=== PATIENT | male | born 1975 | race Caucasian/White ===

== ENCOUNTER 2020-07-13 12:24 | Emergency (ER) | payer MEDICARE, OTHER ==
[~2020-07-13 12:24] MED LIST: ALDACTONE25 MG PO; AMOX TR-K CLV1 EAC4 PO; BENTYL10 MG PO; DEXAMETHASONE 2M2 MG PO; HEPARIN 3010 UNIT/1 IV; HUMALOG100 UNIT/1 SC; IRON325 M1 PO; JANUVIA50 MG PO; K-DUR20 MEQ PO; LASIX40 MG PO; LEVEMIR VI100 UNITS/ SC; LIPITOR 10MG TA10 MG PO; MEDROL 4MG DOSEP4 MG PO; NEURONTIN100 MG PO; NOVOLOG VI100 UNIT/1 SC; NYSTATIN SUSP1 ML/ML SSW; OXY-IR 5MG5 MG PO; PHENERGAN25 M1 PO; PREDNISONE 10MG10 MG PO; PREDNISONE 20MG20 MG PO; PREDNISONE5 MG PO; PRILOSEC20 MG PO; PROTONIX 40MG T40 MG PO; TALTZ SYRI80 MG/1 ML IJ; VENTOLIN HFA IN18 GM INH; VITAMIN D; XARELTO10 MG PO; ZANAFLEX4 M1 PO; ZESTRIL5 MG PO; ZOFRAN8 MG PO
[2020-07-13 14:01] LABS: BASOPHIL 0.4 % (0-2); EOSINOPHIL 0 % (0-5); HCT 43.9 % (42.0-52.0); HGB 13.4 g/dl (13.2-18.0); LYMPHOCYTE 3.3 % (15-48); MCH 27.9 pg (25.0-31.0); MCHC 30.5 g/dL (32.0-36.0); MCV 91.3 fL (78.0-100.0); MONOCYTE 2.9 % (0-12); MPV 9.5 fL (6.0-9.5); NRBC 0; PLT 267 K/uL (150-400); RBC 4.81 M/uL (4.70-6.00); RDW 18.9 % (11.5-14.0); WBC 11.1 K/uL (4.0-10.5)
[2020-07-13 14:05] LABS: INR 1.15 (0.9-1.2); PTT 26.4 SECONDS (22.2-34.7)
[2020-07-13 14:12] LABS: ALBUMIN 3.1 g/dL (3.4-5.0); BILIRUBIN - TOTAL 0.2 mg/dL (0.2-1.0); CREATININE 0.62 mg/dL (0.67-1.17); GLOBULIN (CALCULATION) 4.1 g/dL; MAGNESIUM 2.3 mg/dL (1.8-2.4); POTASSIUM 4.2 mmol/L (3.5-5.1); TOTAL PROTEIN 7.2 g/dL (6.4-8.2)
[2020-07-13 14:18] LABS: BILIRUBIN NEGATIVE (NEGATIVE); BLOOD NEGATIVE Ery/uL (NEGATIVE); CLARITY CLEAR (CLEAR); COLOR YELLOW (YELLOW); GLUCOSE (U) 3+ mg/dL (NORMAL); LEUKOCYTES NEGATIVE Leu/uL (NEGATIVE); NITRITE NEGATIVE (NEGATIVE); PROTEIN NEGATIVE (NEGATIVE); UROBILINOGEN 0.2 mg/dL (0.2-1.0)
[2020-07-13] MEDS ORDERED: ZOFRAN4 M1 PO (17:23)
== END 2020-07-13 17:49 | disposition home or self-care (01) ==
LOC: FER 12:24
PROVIDERS: Emergency Medicine
DX: R10.84 Generalized abdominal pain (principal); E87.2 Acidosis; R19.7 Diarrhea, unspecified; R50.9 Fever, unspecified; F17.210 Nicotine dependence, cigarettes, uncomplicated; Z88.1 Allergy status to other antibiotic agents; Z88.5 Allergy status to narcotic agent; Z86.711 Personal history of pulmonary embolism
CPT/HCPCS: 36415; 71045; 80053; 81003; 83605; 83690; 83735; 84145; 84484; 85025; 85610; 85730; J1170; J2405; J7030; Q9967

== ENCOUNTER 2020-08-04 10:57 | Emergency (ER) | payer MEDICARE, OTHER ==
[~2020-08-04 10:57] MED LIST changes: +ZOFRAN4 M1 PO
[2020-08-04 12:52] LABS: CORONAVIRUS 2019 SARS-COV-2 NEGATIVE (NEGATIVE); INFLUENZA A NAA NEGATIVE (NEGATIVE)
[2020-08-04 13:16] LABS: BASOPHIL 0.6 % (0-2); EOSINOPHIL 0.3 % (0-5); HCT 45.4 % (42.0-52.0); HGB 13.9 g/dl (13.2-18.0); MCHC 30.6 g/dL (32.0-36.0); MCV 91.5 fL (78.0-100.0); MONOCYTE 10.2 % (0-12); MPV 10.2 fL (6.0-9.5); NEUTROPHIL 62.8 % (41-80); NRBC 0; PLT 313 K/uL (150-400); RBC 4.96 M/uL (4.70-6.00); RDW 18.5 % (11.5-14.0)
[2020-08-04 13:20] LABS: INR 1.03 (0.9-1.2); PROTHROMBIN TIME 12.8 SECONDS (11.4-13.6); PTT 26.5 SECONDS (22.2-34.7)
[2020-08-04 13:33] LABS: PRO-BNP 28 pg/mL (<125)
[2020-08-04 13:47] LABS: LACTIC ACID 4.3 mmol/L (0.4-1.9)
[2020-08-04 14:12] LABS: ALBUMIN 2.8 g/dL (3.4-5.0); BILIRUBIN - TOTAL 0.4 mg/dL (0.2-1.0); BUN/CREAT RATIO (CALC) 17.7 RATIO; C-REACTIVE PROTEIN 5.2 mg/dL (<=0.90); CREATININE 0.62 mg/dL (0.67-1.17); GLOBULIN (CALCULATION) 4.2 g/dL; POTASSIUM 4.3 mmol/L (3.5-5.1)
[2020-08-04 15:16] LABS: BILIRUBIN NEGATIVE (NEGATIVE); BLOOD NEGATIVE Ery/uL (NEGATIVE); CLARITY CLEAR (CLEAR); COLOR YELLOW (YELLOW); GLUCOSE (U) NORMAL (NORMAL); LEUKOCYTES NEGATIVE Leu/uL (NEGATIVE); NITRITE NEGATIVE (NEGATIVE); PROTEIN NEGATIVE (NEGATIVE); UROBILINOGEN 0.2 mg/dL (0.2-1.0); pH 6.5 (5.0-9.0)
[2020-08-04 15:48] LABS: ECSTASY (MDMA) NEGATIVE (NEGATIVE); MARIJUANA (THC) NEGATIVE (NEGATIVE)
[2020-08-04 15:49] LABS: AMPHETAMINES NEGATIVE (NEGATIVE); BARBITURATES NEGATIVE (NEGATIVE); METHADONE NEGATIVE (NEGATIVE); OPIATES NEGATIVE (NEGATIVE); OXYCODONE POSITIVE (NEGATIVE)
[2020-08-04] MEDS ORDERED: PHENERGAN25 M1 PO ×2 (17:24→18:07)
[2020-08-04] MEDS ORDERED: PREDNISONE5 MG PO ×2 (17:24→18:07)
[2020-08-04] MEDS ORDERED: XARELTO20 MG PO ×2 (17:28→18:07)
== END 2020-08-04 18:20 | disposition home or self-care (01) ==
LOC: FER 10:57
PROVIDERS: Emergency Medicine
DX: R10.9 Unspecified abdominal pain (principal); E86.0 Dehydration; R11.2 Nausea with vomiting, unspecified; F17.210 Nicotine dependence, cigarettes, uncomplicated; Z20.822 Contact with and (suspected) exposure to COVID-19; Z88.5 Allergy status to narcotic agent; Z88.1 Allergy status to other antibiotic agents
CPT/HCPCS: 36415; 36600; 71250; 80053; 80305; 81003; 82550; 82728; 82803; 83605; 83615; 83880; 84145; 84443; 84484; 85025; 85610; 85730; 86140; 87040; 93005; J1170; J2405; J2930; J7030; U0002

== ENCOUNTER 2021-10-30 09:57 | Inpatient (IN) | payer MEDICARE, OTHER ==
[~2021-10-30] VITALS: Ht 175.3 cm; Wt 112.7 kg
[~2021-10-30 09:57] MED LIST changes: +XARELTO20 MG PO
[2021-10-30 13:37] LABS: BASOPHIL 0.7 % (0-2); EOSINOPHIL 0 % (0-5); HCT 49.7 % (42.0-52.0); HGB 15.5 g/dl (13.2-18.0); LYMPHOCYTE 7.8 % (15-48); MCH 28.8 pg (25.0-31.0); MCHC 31.2 g/dL (32.0-36.0); MCV 92.2 fL (78.0-100.0); MONOCYTE 3.8 % (0-12); MPV 10.4 fL (6.0-9.5); NEUTROPHIL 82.6 % (41-80); NRBC 0; PLT 209 K/uL (150-400); RBC 5.39 M/uL (4.70-6.00); RDW 18.2 % (11.5-14.0)
[2021-10-30 13:48] LABS: INR 1.03 (0.9-1.2); PROTHROMBIN TIME 12.9 SECONDS (11.8-13.4); PTT 25.3 SECONDS (24.4-34.7)
[2021-10-30 13:59] LABS: ALBUMIN 3.2 g/dL (3.4-5.0); BILIRUBIN - TOTAL 0.8 mg/dL (0.2-1.0); BUN/CREAT RATIO (CALC) 25.4 RATIO; C-REACTIVE PROTEIN 6.3 mg/dL (<=0.90); CREATININE 0.59 mg/dL (0.67-1.17); GLOBULIN (CALCULATION) 4.3 g/dL; POTASSIUM 4.5 mmol/L (3.5-5.1); TOTAL PROTEIN 7.5 g/dL (6.4-8.2)
[2021-10-30 14:01] LABS: WBC 14.7 K/uL (4.0-10.5)
[2021-10-30] MEDS ORDERED: PREDNISONE 20MG20 MG PO (18:26)
[2021-10-30] MEDS ORDERED: MINIPRESS2 MG PO (18:28)
[2021-10-30] MEDS ORDERED: PROAIR HFA8.5 GM INH (18:29)
[2021-10-30] MEDS ORDERED: PHENERGAN12.5 M1 PO (18:31)
[2021-10-30] MEDS ORDERED: BENADRYL25 M1 PO (18:33)
[2021-10-30] MEDS ORDERED: COLACE100 M1 PO (18:33)
[2021-10-30] MEDS ORDERED: BENTYL10 MG PO (18:34)
[2021-10-30] MEDS ORDERED: DURAGESIC 100100 MCG TD (18:35)
[2021-10-30] MEDS ORDERED: DURAGESIC 50MC50 MCG TD (18:35)
[2021-10-30] MEDS ORDERED: FLOVENT HFA12 GM INH (18:36)
[2021-10-30] MEDS ORDERED: LASIX40 MG PO (18:36)
[2021-10-30] MEDS ORDERED: NEURONTIN400 MG PO (18:37)
[2021-10-30] MEDS ORDERED: JANUVIA50 MG PO (18:37)
[2021-10-30] MEDS ORDERED: LEVEMIR VI100 UNITS/ IM (18:38)
[2021-10-30] MEDS ORDERED: LEVEMIR DO100 UNITS/ IM (18:39)
[2021-10-30] MEDS ORDERED: ATIVAN1 MG PO (18:40)
[2021-10-30] MEDS ORDERED: TREXALL5 MG PO (18:44)
[2021-10-31 06:29] LABS: BASOPHIL 0.5 % (0-2); EOSINOPHIL 0 % (0-5); HCT 45.3 % (42.0-52.0); HGB 13.8 g/dl (13.2-18.0); LYMPHOCYTE 6.5 % (15-48); MCH 28.4 pg (25.0-31.0); MCHC 30.5 g/dL (32.0-36.0); MCV 93.2 fL (78.0-100.0); MONOCYTE 1.7 % (0-12); MPV 10.4 fL (6.0-9.5); NEUTROPHIL 86.4 % (41-80); PLT 187 K/uL (150-400); RBC 4.86 M/uL (4.70-6.00); RDW 17.5 % (11.5-14.0)
[2021-10-31 06:30] LABS: WBC 11.3 K/uL (4.0-10.5)
[2021-10-31 06:53] LABS: ALBUMIN 2.8 g/dL (3.4-5.0); BILIRUBIN - TOTAL 0.6 mg/dL (0.2-1.0); BUN/CREAT RATIO (CALC) 23.5 RATIO; CREATININE 0.51 mg/dL (0.67-1.17); GLOBULIN (CALCULATION) 2.9 g/dL; POTASSIUM 5.1 mmol/L (3.5-5.1); TOTAL PROTEIN 5.7 g/dL (6.4-8.2)
[2021-10-31 07:37] LABS: BAND 3 % (0-10); LYMPHOCYTE(M) 10 % (15-48); MONOCYTE(M) 1 % (0-12); NEUTROPHILS(M) 86 % (41-80); NRBC 0; TOTAL CELL COUNT 100
[2021-10-31 07:39] LABS: PLATELET ESTIMATE NORMAL; PLATELET MORPHOLOGY NORMAL
[2021-11-01 06:45] LABS: BASOPHIL 0.2 % (0-2); EOSINOPHIL 0.1 % (0-5); HCT 46.8 % (42.0-52.0); HGB 14.4 g/dl (13.2-18.0); MCH 28.9 pg (25.0-31.0); MCHC 30.8 g/dL (32.0-36.0); MCV 93.8 fL (78.0-100.0); MONOCYTE 5.7 % (0-12); MPV 10.3 fL (6.0-9.5); NEUTROPHIL 85.2 % (41-80); NRBC 0; PLT 195 K/uL (150-400); RBC 4.99 M/uL (4.70-6.00); RDW 17.5 % (11.5-14.0); WBC 16.3 K/uL (4.0-10.5)
[2021-11-01 07:17] LABS: BUN/CREAT RATIO (CALC) 34.5 RATIO; CREATININE 0.55 mg/dL (0.67-1.17); POTASSIUM 4.3 mmol/L (3.5-5.1)
[2021-11-02 07:48] LABS: BUN/CREAT RATIO (CALC) 30.5 RATIO; C-REACTIVE PROTEIN 2.3 mg/dL (<=0.90); CREATININE 0.59 mg/dL (0.67-1.17); MAGNESIUM 1.8 mg/dL (1.8-2.4); POTASSIUM 3.8 mmol/L (3.5-5.1)
[2021-11-02 11:26] LABS: BASOPHIL 0.6 % (0-2); EOSINOPHIL 0.5 % (0-5); HCT 47.3 % (42.0-52.0); HGB 14.4 g/dl (13.2-18.0); LYMPHOCYTE 18.2 % (15-48); MCHC 30.4 g/dL (32.0-36.0); MCV 95.2 fL (78.0-100.0); MONOCYTE 7.4 % (0-12); MPV 10.2 fL (6.0-9.5); NEUTROPHIL 68.1 % (41-80); NRBC 0; PLT 195 K/uL (150-400); RBC 4.97 M/uL (4.70-6.00); RDW 18.1 % (11.5-14.0); WBC 11.4 K/uL (4.0-10.5)
[2021-11-03 06:49] LABS: BASOPHIL 0.2 % (0-2); EOSINOPHIL 0.5 % (0-5); HCT 49.4 % (42.0-52.0); HGB 15.3 g/dl (13.2-18.0); LYMPHOCYTE 14.1 % (15-48); MCH 28.5 pg (25.0-31.0); MONOCYTE 7.7 % (0-12); MPV 10.7 fL (6.0-9.5); NEUTROPHIL 70.9 % (41-80); NRBC 0; PLT 209 K/uL (150-400); RBC 5.37 M/uL (4.70-6.00); RDW 17.6 % (11.5-14.0); WBC 12.8 K/uL (4.0-10.5)
[2021-11-03 07:29] LABS: BUN/CREAT RATIO (CALC) 30.5 RATIO; C-REACTIVE PROTEIN 1.8 mg/dL (<=0.90); CREATININE 0.59 mg/dL (0.67-1.17); POTASSIUM 3.8 mmol/L (3.5-5.1)
[2021-11-03] MEDS ORDERED: DOXYCYCLINE MO100 M1 PO (10:45)
[2021-11-03] MEDS ORDERED: ELIQUIS5 MG PO (10:57)
== END 2021-11-03 13:15 | disposition home or self-care (01) | DRG 871 ==
LOC: FER 09:57 → FMS 16:36
PROVIDERS: Emergency Medicine; Nurse Practitioner; ADMIT Internal Medicine
PROC: 3E03329 Introduction of Other Anti-infective into Peripheral Vein, Percutaneous Approach (ICD-10-PCS; 2021-10-30)
PROC: B24BZZZ Ultrasonography of Heart with Aorta (ICD-10-PCS; principal; 2021-10-31)
DX: A41.9 Sepsis, unspecified organism (principal); I26.99 Other pulmonary embolism without acute cor pulmonale; T82.594A Other mechanical complication of infusion catheter, initial encounter; L03.116 Cellulitis of left lower limb; L03.115 Cellulitis of right lower limb; I69.05 Hemiplegia and hemiparesis following nontraumatic subarachnoid hemorrhage; I50.32 Chronic diastolic (congestive) heart failure; J98.11 Atelectasis; F11.20 Opioid dependence, uncomplicated; D84.821 Immunodeficiency due to drugs; Z66 Do not resuscitate; R65.20 Severe sepsis without septic shock; I11.0 Hypertensive heart disease with heart failure; J44.9 Chronic obstructive pulmonary disease, unspecified; E11.9 Type 2 diabetes mellitus without complications; M32.9 Systemic lupus erythematosus, unspecified; M06.9 Rheumatoid arthritis, unspecified; F32.9 Major depressive disorder, single episode, unspecified; F41.9 Anxiety disorder, unspecified; S82.124D Nondisplaced fracture of lateral condyle of right tibia, subsequent encounter for closed fracture with routine healing; M45.9 Ankylosing spondylitis of unspecified sites in spine; E11.40 Type 2 diabetes mellitus with diabetic neuropathy, unspecified; F17.210 Nicotine dependence, cigarettes, uncomplicated; G89.29 Other chronic pain; M79.7 Fibromyalgia; E66.9 Obesity, unspecified; T38.0X5A Adverse effect of glucocorticoids and synthetic analogues, initial encounter; W20.8XXD Other cause of strike by thrown, projected or falling object, subsequent encounter; I25.10 Atherosclerotic heart disease of native coronary artery without angina pectoris; Z79.4 Long term (current) use of insulin; Y83.8 Other surgical procedures as the cause of abnormal reaction of the patient, or of later complication, without mention of misadventure at the time of the procedure; M81.0 Age-related osteoporosis without current pathological fracture; E78.5 Hyperlipidemia, unspecified; G47.00 Insomnia, unspecified; E55.9 Vitamin D deficiency, unspecified; G47.33 Obstructive sleep apnea (adult) (pediatric); K21.9 Gastro-esophageal reflux disease without esophagitis; Z68.36 Body mass index [BMI] 36.0-36.9, adult; Z90.49 Acquired absence of other specified parts of digestive tract; Z98.890 Other specified postprocedural states; Z82.69 Family history of other diseases of the musculoskeletal system and connective tissue; Z82.49 Family history of ischemic heart disease and other diseases of the circulatory system; Z86.718 Personal history of other venous thrombosis and embolism; Z88.5 Allergy status to narcotic agent; Z88.1 Allergy status to other antibiotic agents; Z79.899 Other long term (current) drug therapy; Z86.16 Personal history of COVID-19; Z79.52 Long term (current) use of systemic steroids; Z86.14 Personal history of Methicillin resistant Staphylococcus aureus infection; Z99.3 Dependence on wheelchair
CPT/HCPCS: 36415; 71045; 71275; 80048; 80053; 82962; 83605; 83735; 83880; 84145; 84484; 85025; 85610; 85730; 86140; 87040; 93971; 94010; 94640; 94760; 94762; J1170; J1815; J2020; J2405; J2550; J2920; J2930; J7050; J7120; J7512; Q9967